=== PATIENT | male | born 1940 | race Caucasian/White ===

== ENCOUNTER 2018-04-25 13:15 | Outpatient (CLI) | payer MEDICARE, OTHER, SELFPAY ==
--- NOTE | 2018-04-25 13:31 | DI.RAD_ITS ---
SYMPTOM/DIAGNOSIS: COUGH,R05 PA AND LATERAL CHEST: Comparison is made with 09/30/09. Heart size and pulmonary vasculature are stable and within normal limits. The lungs are clear. No effusions or pneumothoraces are identified. Old healed right rib fractures are noted. There is hyperinflation of the lungs consistent with underlying COPD. Degenerative changes are present. IMPRESSION: No acute pulmonary process.
== END 2018-04-25 13:35 ==
PROVIDERS: PCP Internal Medicine; Visit Provider Internal Medicine
DX: R05 Cough (principal); J44.9 Chronic obstructive pulmonary disease, unspecified
CPT/HCPCS: 71046

== ENCOUNTER 2018-05-15 14:16 | Outpatient (REF) | payer MEDICARE, OTHER, SELFPAY ==
[2018-05-15 20:58] LABS: HCT 38.2 % (40.0-50.0); Mean Corpuscular Hemoglobin 30.6 pg (27.0-33.0); Mean Corpuscular Volume 89.9 fL (80-95); Mean Platelet Volume 9.6 fL (8.0-11.0); Platelet Count 256 x1000/uL (130-400); RBC 4.25 m/cumm (4.50-6.00); RBC Distribution Width 14.9 % (11.8-14.1); White Blood Cell Count 6.91 k/cumm (4.4-10.8)
[2018-05-15 21:31] LABS: Iron 72 ug/dL (50-175); Total Iron Binding Capacity 279 ug/dL (250-450); Transferrin Sat 26 % (20-55)
[2018-05-15 21:53] LABS: Anion Gap 8.5 mmol/L (3-11); BUN 15 mg/dL (7-18); CO2 30.5 mmol/L (21.0-32.0); CREATININE 1.26 mg/dL (0.70-1.30); Calcium 8.7 mg/dL (8.5-10.1); Chloride 100 mmol/L (98-107); Cholesterol 176 mg/dL (50-200); Estimated GFR 55.49 (mL/min/1.73m2); Glucose 99 mg/dL (70-100); HDL Cholesterol 43 mg/dL (40-60); LDL CHOLESTEROL 113 mg/dL (<100); Potassium 3.7 mmol/L (3.5-5.1); Sodium 139 mmol/L (136-145); Triglyceride 148 mg/dL (30-150); Vitamin B12 220 pg/mL (193-986)
== END 2018-05-15 14:36 ==
LOC: NCHCN 14:16
PROVIDERS: PCP Internal Medicine; Visit Provider Internal Medicine
DX: E53.8 Deficiency of other specified B group vitamins (principal); I10 Essential (primary) hypertension; N18.2 Chronic kidney disease, stage 2 (mild); F10.10 Alcohol abuse, uncomplicated; D50.9 Iron deficiency anemia, unspecified
CPT/HCPCS: 80048; 80061; 83721; 85027; 82607; 83540; 83550

== ENCOUNTER 2018-06-16 16:25 | Outpatient (CLI) | payer MEDICARE, OTHER, SELFPAY ==
--- NOTE | 2018-06-16 12:01 | DI.RAD_ITS ---
SYMPTOMS/DIAGNOSIS: COUGH, R05, SINCE MARCH WITH WHEEZING AND RASPY SOUNDS, INHALER NOT HELPING PA AND LATERAL CHEST: Comparison is made with April,. The heart size is within normal limits. The aorta is again noted to be quite tortuous. There are old right upper rib fractures. There are stable mid thoracic compression fractures and degenerative disc changes. The lungs appear clear. IMPRESSION: No acute abnormality.
== END 2018-06-16 16:45 ==
PROVIDERS: PCP Internal Medicine; Visit Provider Internal Medicine
DX: R06.2 Wheezing (principal); R05 Cough
CPT/HCPCS: 71046

== ENCOUNTER 2018-06-19 02:48 | Outpatient (CLI) | payer MEDICARE, OTHER, SELFPAY ==
--- NOTE | 2018-06-19 | PFT_ITS ---
PULMONARY FUNCTION TEST REPORT DATE OF DICTATION June 23, 2018 Patient identification - Som Price DATE OF - 42 DATE OF SERVICE - June 19, 2018 REQUESTING PROVIDER - Jose Malik M.D. INTERPRETATION OF STUDY Spirometry shows mild obstructive airways disease with significant bronchodilator response. LUNG VOLUMES - Lung volumes show mild restriction. DIFFUSION CAPACITY- Normal. AIRWAY RESISTANCE - Elevated. IMPRESSION Combination of mild obstructive airways disease with significant bronchodilator response and mild restrictive lung disease, therefore clinical correlation is recommended. Nayana Cavanaugh M.D. SILVESTRE/harini T - 06/23/2018
[2018-06-19] MEDS: Albuterol HFA 18 GM 200 PUFF INH IH (15:40)
[2018-06-19] MEDS: Inhaler, Assist Device 1 EACH MC (15:40)
== END 2018-06-19 03:08 ==
PROVIDERS: PCP Internal Medicine; Visit Provider Internal Medicine
DX: R05 Cough (principal)
CPT/HCPCS: 94060; 94150; 94726; 94729

== ENCOUNTER 2018-08-15 15:31 | Outpatient (REF) | payer MEDICARE, OTHER, SELFPAY ==
[2018-08-15 20:41] LABS: Anion Gap 6.9 mmol/L (3-11); BUN 22 mg/dL (7-18); CO2 27.1 mmol/L (21.0-32.0); Calcium 8.8 mg/dL (8.5-10.1); Chloride 105 mmol/L (98-107); Estimated GFR 53.53 (mL/min/1.73m2); Glucose 113 mg/dL (70-100); Potassium 3.9 mmol/L (3.5-5.1); Sodium 139 mmol/L (136-145)
== END 2018-08-15 15:51 ==
LOC: NCHCN 15:31
PROVIDERS: PCP Internal Medicine; Visit Provider Internal Medicine
DX: J44.9 Chronic obstructive pulmonary disease, unspecified (principal); J42 Unspecified chronic bronchitis; I10 Essential (primary) hypertension; M10.9 Gout, unspecified; D50.9 Iron deficiency anemia, unspecified
CPT/HCPCS: 80048

== ENCOUNTER 2019-03-04 14:49 | Outpatient (CLI) | payer MEDICARE, OTHER, SELFPAY ==
--- NOTE | 2019-03-04 14:12 | DI.RAD_ITS ---
EXAM: XR SHOULDER LT COMPLETE 2+V INDICATION: left shoulder pain. COMPARISON: RIGHT SHOULDER COMPLETE from 03/15/2010 TECHNIQUE: 2D digital imaging was performed. FINDINGS: Two views were obtained. There is severe hypertrophic degenerative change of the acromioclavicular a nd glenohumeral joints. There is superior subluxation of the humeral head which abuts the acromion c onsistent with chronic superior rotator cuff tear. IMPRESSION: Severe DJD of the left shoulder.
== END 2019-03-04 15:09 ==
PROVIDERS: PCP Internal Medicine; Visit Provider Physician Assistant
DX: M25.512 Pain in left shoulder (principal); M75.102 Unspecified rotator cuff tear or rupture of left shoulder, not specified as traumatic; M12.812 Other specific arthropathies, not elsewhere classified, left shoulder
CPT/HCPCS: 20610; 99203; 73030; J1030

== ENCOUNTER → 2019-04-22 11:05 | Outpatient (BNVA) | payer MEDICARE, OTHER, SELFPAY | PROVIDERS: PCP Internal Medicine; Referring Provider Internal Medicine; Visit Provider Orthopaedic Surgery | DX: M70.62 Trochanteric bursitis, left hip (principal); M25.552 Pain in left hip | CPT/HCPCS: 20610; 99213; J1040 ==

== ENCOUNTER → 2019-07-01 08:06 | Outpatient (BNVA) | payer MEDICARE, OTHER, SELFPAY | PROVIDERS: PCP Internal Medicine; Referring Provider Internal Medicine; Visit Provider Student in an Organized Health Care Education/Training Program | DX: M12.812 Other specific arthropathies, not elsewhere classified, left shoulder (principal) | CPT/HCPCS: 20610; 99214; J1040 ==

== ENCOUNTER 2019-07-14 00:43 | Outpatient (CLI) | payer MEDICARE, OTHER, SELFPAY ==
--- NOTE | 2019-07-14 15:37 | DI.CT_ITS ---
EXAM: CT UPPER EXTREMITY LT WO CLINICAL HISTORY: REVERSE TOTAL SHOULDER SURGICAL PLANNING, M12.812 ARTHROPATHIES LT SHOULDER TECHNIQUE: Noncontrast COMPARISON: XR SHOULDER LT COMPLETE 2+V from 03/04/2019 FINDINGS: Severe degenerative changes are demonstrated in the left shoulder. The humeral head articulates with the undersurface of the acromion. A large joint effusion is seen. Fluid is seen in the subcoracoid bursa. There is calcification around the joint and small loose bodies within the effusion. IMPRESSION: Severe degenerative changes of the left shoulder.
== END 2019-07-14 01:03 ==
PROVIDERS: PCP Internal Medicine; Visit Provider Student in an Organized Health Care Education/Training Program
DX: M12.812 Other specific arthropathies, not elsewhere classified, left shoulder (principal); M19.012 Primary osteoarthritis, left shoulder; M25.412 Effusion, left shoulder
CPT/HCPCS: 73200

== ENCOUNTER 2019-10-06 10:22 | Outpatient (CLI) | payer MEDICARE, OTHER, SELFPAY ==
--- NOTE | 2019-10-06 09:45 | DI.RAD_ITS ---
EXAM: XR SHOULDER RT COMPLETE 2+V CLINICAL HISTORY: traumatic injury to right shoulder TECHNIQUE: 2D digital imaging was performed. COMPARISON: 15 March 2010 FINDINGS: The humeral head is high riding, articulating with the undersurface of the acromion, consistent with a chronic rotator cuff tear. There is some spurring from the AC joint. Subchondral cysts are seen in the humeral head. There is severe narrowing of the glenohumeral joint and periarticular spurring. IMPRESSION: Severe degenerative changes of the left shoulder and chronic rotator cuff tear.
== END 2019-10-06 10:42 ==
PROVIDERS: PCP Internal Medicine; Referring Provider Internal Medicine; Visit Provider Student in an Organized Health Care Education/Training Program
DX: M25.511 Pain in right shoulder (principal); S46.011D Strain of muscle(s) and tendon(s) of the rotator cuff of right shoulder, subsequent encounter; X58.XXXD Exposure to other specified factors, subsequent encounter; M12.812 Other specific arthropathies, not elsewhere classified, left shoulder; M75.22 Bicipital tendinitis, left shoulder
CPT/HCPCS: 20610; 99214; 73030; J1040

== ENCOUNTER 2019-12-10 12:41 | Outpatient (REF) | payer MEDICARE, SELFPAY ==
[2019-12-10 20:46] LABS: Anion Gap 10.5 mmol/L (3-11); BUN 19 mg/dL (7-18); CO2 23.5 mmol/L (21.0-32.0); CREATININE 1.22 mg/dL (0.70-1.30); Calcium 8.7 mg/dL (8.5-10.1); Chloride 104 mmol/L (98-107); Estimated GFR 57.45 (mL/min/1.73m2); Glucose 91 mg/dL (74-106); Potassium 4.6 mmol/L (3.5-5.1); Sodium 138 mmol/L (136-145)
== END 2019-12-10 13:01 ==
LOC: NCHCN 12:41
PROVIDERS: PCP Internal Medicine; Visit Provider Internal Medicine
DX: I10 Essential (primary) hypertension (principal)
CPT/HCPCS: 80048

== ENCOUNTER 2020-02-09 11:01 | Outpatient (CLI) | payer MEDICARE, SELFPAY ==
--- NOTE | 2020-02-09 10:00 | DI.RAD_ITS ---
EXAM: XR SHOULDER LT COMPLETE 2+V CLINICAL HISTORY: f/u shoulder pain TECHNIQUE: COMPARISON: CR XR SHOULDER RT COMPLETE 2+V from 10/06/2019 FINDINGS: Two views were obtained. There is severe loss of the cartilaginous joint space of the glenohumeral j oint. Humeral head is subluxed superiorly and abuts the inferior acromion. There is marked deformit y of humeral head, glenoid, and inferior surface of acromion marked subchondral sclerosis at each the se sites and very prominent marginal osteophytes seen at these sites. IMPRESSION: End-stage degenerative change glenohumeral joint, presumed chronic severe superior rotator cuff tear. RADIATION DOSE DELIVERED: Total DLP
== END 2020-02-09 11:21 ==
PROVIDERS: PCP Internal Medicine; Referring Provider Internal Medicine; Visit Provider Student in an Organized Health Care Education/Training Program
DX: M19.012 Primary osteoarthritis, left shoulder; M25.712 Osteophyte, left shoulder; S46.011D Strain of muscle(s) and tendon(s) of the rotator cuff of right shoulder, subsequent encounter; X58.XXXD Exposure to other specified factors, subsequent encounter; Z98.890 Other specified postprocedural states
CPT/HCPCS: 99213; 73030

== ENCOUNTER → 2020-03-22 09:12 | Outpatient (BNVA) | payer MEDICARE, SELFPAY | PROVIDERS: PCP Internal Medicine; Referring Provider Internal Medicine; Visit Provider Orthopaedic Surgery | DX: M70.62 Trochanteric bursitis, left hip (principal) | CPT/HCPCS: 20610; 99213; J1040 ==

== ENCOUNTER 2020-04-04 13:59 | Outpatient (REF) | payer MEDICARE, SELFPAY ==
[2020-04-06 23:48] LABS: Patient Race White; SARS-CoV-2 RNA Undetected (Undetected); SARS-CoV-2 Specimen Source Nasal
== END 2020-04-04 14:19 ==
LOC: NCHCN 13:59
PROVIDERS: PCP Internal Medicine; Visit Provider Internal Medicine
DX: Z20.828 Contact with and (suspected) exposure to other viral communicable diseases (principal)
CPT/HCPCS: U0003

== ENCOUNTER 2020-04-23 14:11 | Emergency (ER) | payer MEDICARE, SELFPAY ==
[2020-04-23 14:10] VITALS: BP 182/97; PULSE 85; TEMP 37.3; O2SAT 96
--- NOTE | 2020-04-23 14:19 | W.ED.GENAD ---
Discharge Plan Disposition Patient Disposition: HOME Condition: Good Discharge Details Clinical Impression: Skin tear, Laceration of nose, Contusion of head Primary Care Provider: Jose Malik ED Provider: Marisel Clemons Home Meds and New Rx's Prescriptions: No Action atorvastatin 20 mg tablet 20 mg PO DAILY RF: 0 fluticasone propionate 50 mcg/actuation spray,suspension 1 spray DONY DAILY RF: 0 Anoro Ellipta 62.5-25 mcg/actuation blister with device 1 inh IH DAILY RF: 0 amlodipine 5 mg tablet 5 mg PO DAILY RF: 0 metoprolol succinate 100 mg tablet extended release 24 hr 100 mg PO DAILY RF: 0 multivitamin Tablet 1 tab PO DAILY RF: 0 cyanocobalamin (vitamin B-12) 1,000 mcg tablet 1,000 mcg PO DAILY RF: 0 fexofenadine [Tiffany Allergy] 180 mg tablet 180 mg PO DAILY RF: 0 citalopram 20 mg tablet 20 mg PO DAILY RF: 0 trazodone 50 mg tablet 50 mg PO QHS PRNRF: 0 glucosamine sulfate 500 mg tablet 500 mg PO DAILY RF: 0 melatonin 3 mg Tablet 3 mg PO DAILY RF: 0 aspirin [Aspir-81] 81 mg Tablet,Delayed Release (Dr/Ec) 81 mg PO DAILY RF: 0 Discharge Instructions Instructions: Contusion in Adults (ED), Skin Adhesive Care (ED), Facial Laceration (ED) Additional Instructions: Keep your wounds clean, dry, covered. You may use Tylenol as needed for discomfort. The adhesive of your nose will follow up on its own over the next 1 to 2 weeks. Please do not pick or pull at this. Do not apply any ointment over this as it may cause it to breakdown too early. Please keep the bandages on your arm until evaluated by your primary care this week. Please call your primary care provider on Saturday to schedule follow-up appointment this week for reevaluation. If you develop headache, vomiting, fevers, weakness or other new/worsening symptom please seek care urgently once again. Referrals: Jose Malik MD [Primary Care Provider] - Discharge Data Discharge Date/Time-TO BE ENTERED AT DEPARTURE: 04/23/20 16:25 Medical Decision Making Patient is a very pleasant 80 year old male brought in via EMS with c/c of laceration. Patient states that he was sitting at a table with friends, stood and got tangled up in my feet and fell forward. States that he remembers the fall but does not know if he lost consciousness after he struck his head. [place] like he was dazed initially but this has since subsided. Has laceration to his nose which EMS states has been bleeding briskly. They have been applying pressure and gauze. He was also noted to have skin tears to both arms. Denies other injury at that time. He denies GALLARDO, no visual changes, no weakness, no neck pain, CP or SOB. He is not anticoagulated. He states he was feeling well prior to fall. No CP, palpitation, lightheadedness. On exam, patient has actively bleeding inverted V shaped laceration on the bridge of his nose. Fairly superficial but bleeding briskly. Surgicel applied and direct pressure. Patient bled through this quickly. Gelfoam and pressure applied. This stopped the bleeding. No palpable skull fracture or other cranial injury. No neck pain, midline tenderness, chest pain. Full ROM of back/neck. Lungs are clear. Abdomen benign. Has superifical skin tears to his bilateral arms. Neuro exam intact. Patient very chatty, well oriented, comfortable. Obtained CT to evaluate for intracranial pathology given age, reviewed by radiologist: FINDINGS: Brain: No acute large territorial infarction or intracranial hemorrhage. 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 No mass effect or midline shift. Incidental partially empty sella. Cerebral ventricles: No hydrocephalus. Bones/joints: No displaced calvarial fracture. Paranasal sinuses: Small right maxillary sinus mucous retention cyst. Leftward nasal septal deviation with presence of a nasal spur. Mastoid air cells: Visualized mastoid air cells are well aerated. Orbital cavity: Status post lens replacement. Vasculature: Intracranial atherosclerosis. Soft tissues: Mild mid-frontal scalp hematoma. IMPRESSION: 1. Mild mid-frontal scalp hematoma. Otherwise, no acute intracranial abnormality. 2. Chronic senescent changes. Intracranial atherosclerosis. Mild paranasal sinus disease. Incidental partially empty sella. Discussed findings with the patient. Discussed risks/benefits of adhesive closure of his nose. Bleeding is now under controlled. Skin tears were cleansed and cared for by nursing staff, covered with Mepilex. Please see procedure note. Patient tolerated this well. Wound explored to base in bloodless field. Advised on wound and adhesive care. Advised f/u with PCP this week for reevaluation of his skin tears. He was given return precautions. All of his questions and concerns were addressed, he isin agreement with this plan. Patient ambulated out of the department unassisted. HPI General Mode of arrival: EMS. Date/Time Provider Initiated Documentation: 04/23/20 14:19. Limitations to Documentation: no limitations. Information obtained by: patient, EMS and RN notes reviewed. History of Present Illness 80 year old M presents to the emergency department with the chief complaint of fall, laceration to nose and bilateral forearms, described as mild (patient denies pain currently), Quality is described as aching, and is localized to the face, left, right and upper extremity. Patient reports no radiation. Patient started experiencing this minute(s) and it has been constant. No relieving factors improve symptom(s), No exacerbating factors reported . Patient notes no other symptoms.. Patient did receive the following treatments prior to arrival, none Related Data Home Medications Medication Instructions Recorded Confirmed amlodipine 5 mg tablet 5 mg PO DAILY 03/04/19 04/23/20 atorvastatin 20 mg tablet 20 mg PO DAILY 03/04/19 04/23/20 citalopram 20 mg tablet 20 mg PO DAILY 03/04/19 04/23/20 cyanocobalamin (vitamin B-12) 1,000 mcg PO DAILY 03/04/19 04/23/20 1,000 mcg tablet fexofenadine 180 mg tablet 180 mg PO DAILY 03/04/19 04/23/20 fluticasone propionate 50 1 spray DONY DAILY 03/04/19 04/23/20 mcg/actuation nasal spray,suspension glucosamine sulfate 500 mg tablet 500 mg PO DAILY tab 03/04/19 04/23/20 metoprolol succinate 100 mg 100 mg PO DAILY 03/04/19 04/23/20 tablet,extended release 24 hr multivitamin 1 tab PO DAILY 03/04/19 04/23/20 trazodone 50 mg tablet 50 mg PO QHS PRN 03/04/19 04/23/20 umeclidinium 62.5 mcg-vilanterol 1 inh IH DAILY 03/04/19 04/23/20 25 mcg/actuation powdr for inhalation aspirin [Aspir-81] 81 mg PO DAILY 04/23/20 04/23/20 melatonin 3 mg PO DAILY 04/23/20 04/23/20 Allergies Allergy/AdvReac Type Severity Reaction Status Date / Time Penicillins AdvReac Verified 03/22/20 09:18 General Stated Complaint: Trauma LIZABETH: 2 Review of Systems Constitutional Constitutional: Reports as per HPI, Denies chills, Denies fatigue, Denies fever(s), Denies headache(s) and Denies weakness Eyes Eyes: Reports as per HPI, Denies blurry vision, Denies change in vision and Denies loss of vision ENT Ears, Nose, Mouth, and Throat: Denies abnormal hearing and Denies headache(s) Cardiovascular Cardiovascular: Reports as per HPI, Denies chest pain and Denies dyspnea Respiratory Respiratory: Reports as per HPI, Denies cough, Denies pain on inspiration, Denies pain with cough and Denies dyspnea Gastrointestinal Gastrointestinal: Reports as per HPI, Denies abdominal pain, Denies nausea and Denies vomiting Genitourinary Genitourinary: Reports as per HPI and Denies urinary incontinence Musculoskeletal Musculoskeletal: Reports as per HPI Integumentary/Breasts Skin/Breast: Reports as per HPI and Reports wounds Neurologic Neurologic: Reports as per HPI, Denies abnormal hearing, Denies abnormal movements, Denies abnormal speech, Denies headache(s), Denies lack of coordination, Denies localized weakness, Denies loss of vision, Denies seizure-like activity, Denies paresthesias and Denies weakness Endocrine Endocrine: Denies fatigue [facility] Medical History (Updated 04/23/20 @ 15:54 by RAJ Elaine) Alcohol abuse in remission Rotator cuff tear, right Trochanteric bursitis, left hip Most recent injection: 03/22/2020; 04/22/2019 Social History Smoking/Tobacco Use Status: Former Tobacco Use Smoking risk assessment performed?: Yes Alcohol Intake: former Substance use type: does not use Current gender identity: male Do you feel safe at home: Yes Do you feel safe in your relationship?: Yes Exam Const General: cooperative (very chatty), healthy appearing, comfortable, no acute distress, well developed and well groomed Nutritional Appearance: average body habitus and well nourished Orientation: alert, awake and oriented x3 HENMT Head: no palpable skull fracture, normocephalic, no Lechuga's sign, no lacerations, no palpable skull fracture and no scalp tenderness Head images: 1. area of swelling, no laceration over this Ears: hearing grossly normal bilaterally, external ears normal and TM's normal bilaterally General nose exam: septum normal, no nasal discharge, no epistaxis and other (laceration as drawn below) Face and sinus: normal facial exam, sinuses tender, face symmetric, no crepitus, no ecchymosis, no erythema, no fluctuance, laceration, no maxillary instability and no tenderness Face images: 1. laceration, brisk bleeding at this time. No swelling, no palpable deformity Mouth: oral mucosae normal, lip normal (has dried blood around mouth, appears to be from lac, no intraoral bleeding), tongue normal, no trismus and No restricted motion Teeth and gingiva: dentition normal (dentures in place) Throat: posterior oropharynx normal (no blood in posterior oropharnyx) Eyes General: appearance normal, both eyes and all related structures Visual Teixeira: normal visual teixeira by confrontation Alignment and Position: alignment normal Periorbital: periorbital findings normal Eyelids: eyelids normal Conjunctivae: conjunctival abnormality left (no pain, visual changes, discharge, evidence of trauma around danielle eye or lid) subconjunctival hemorrhage Pupils: PERRL EOM: EOM intact bilaterally Neck Neck: normal visual inspection, full ROM, no lymphadenopathy, no meningeal signs, trachea midline and supple Chest Chest: normal inspection of the chest, normal palpation of entire chest wall, no crepitus and no localized rib tenderness Resp Effort & Inspection: normal respiratory effort, able to speak in complete sentences and no respiratory distress Auscultation: clear to auscultation bilaterally, no rales, no rhonchi and no wheezes Cardio Rate: regular rate Rhythm: regular rhythm Heart Sounds: S1 normal and S2 normal GI Inspection: normal to inspection, no abdominal wall ecchymosis, no edema and non-distended Palpation: soft, no hepatosplenomegaly, not firm, no guarding, no pulsatile masses, not rigid and nontender Auscultation: normal bowel sounds Back/Spine/Pelvis Back: no CVA tenderness Cervical Spine: normal cervical lordosis and cervical ROM normal Thoracic/Lumbar Spine: thoracic and lumbar spine normal to inspection, thoraco-lumbar ROM normal, No thoraco-lumbar ROM limited, No thoraco-lumbar spasm and No thoracic spinal tenderness Pelvis: no pain with anterior-posterior compression and no pain with lateral compression Skin Trauma: laceration (as above) Neuro General: patient alert, patient awake, patient oriented x3, gait normal, tone normal and moves all extremities Cranial Nerves: CN's II-XI intact bilaterally Cognition: normal cognition Speech: speech normal Gait: normal gait Motor: muscle tone normal throughout, strength 5/5 throughout, no pronator drift, no movement abnormalities noted and no fasciculations Sensory Exam: no sensory deficits noted (no saddle paresthesias) Extrem General: full ROM, capillary refill normal, no pedal edema and no calf tenderness Right upper extremity: full ROM, normal capillary refill and no joint enlargement; abnormal to inspection (laceration with skin avulsion as below) Left upper extremity: abnormal to inspection (skin flap as below) Elbow/forearm/wrist images: 1. superficial avulsion of skin consistent with skin tear. No deep wound. Full ROM. No swelling or surrounding damage. 2. superficial flap laceration without deep wound noted. Able to be reaproximated well. No active bleeding. Psych Appearance: grossly normal and well kempt Mental Status: mental status grossly normal Speech and Movement: speech and movement normal Course Vital Signs Vital signs: Vital Signs Temperature 37.3 C 04/23/20 14:10 Pulse 85 04/23/20 14:10 Blood Pressure 182/97 H 04/23/20 14:10 Pulse Oximetry 96 04/23/20 14:10 Temperature 37.3 C 04/23/20 14:10 Temperature Source Temporal Artery Scan 04/23/20 14:10 Pulse 85 04/23/20 14:10 Blood Pressure 182/97 H 04/23/20 14:10 Blood Pressure Position Sitting 04/23/20 14:10 Pulse Oximetry 96 04/23/20 14:10 Oxygen Delivery Method Room Air 04/23/20 14:10 Oxygen Flow Rate 0 04/23/20 14:10 Procedures Laceration Laceration 1: Site: face Size (cm): 2 Description: irregular (inverted V shaped laceration) Depth: simple, single layer Pre-repair: wound explored, irrigated extensively and deep structures intact Skin layer closed with: other (adhesive)
[2020-04-23 14:36] VITALS: BP 164/92
--- NOTE | 2020-04-23 14:45 | DI.CT_ITS ---
EXAM: CT HEAD WO CLINICAL HISTORY: fell, struck head, ?LOC. TECHNIQUE: Imaging Protocol: Axial computed tomography images with coronal and sagittal reformatted images were created and reviewed COMPARISON: No exams were available for comparison FINDINGS: There is an apparent anterior scalp hematoma. There is moderate generalized cerebral atrophy and there are patchy areas of decreased attenuation in periventricular white matter consistent with microvascular ischemic changes. No evidence of acute intracranial hemorrhage, mass effect, or midline shift. The orbital structures are unremarkable. The temporal bone structures appear intact. Calvarium: Normal. Visualized Paranasal sinuses/Mastoids: Clear. IMPRESSION: No evidence of acute intracranial process. RADIATION DOSE DELIVERED: 769.77mGy.cm Total DLP 769.77mGy.cm Total DLP DATA REPOSITORY: All CT scans at this facility are submitted to the National Radiology Data Registry (NRDR) Dose Index Registry (DIR) with the [employer] ([employer]). RADIATION OPTIMIZATION: All CT scans at this facility use at least one of these dose optimization te chniques: automated exposure control; mA and/or kV adjustment per patient size (includes targeted exa ms where dose is matched to clinical indication); or iterative reconstruction.
--- NOTE | 2020-04-23 14:58 | DI.VRAD_ITS ---
PROCEDURE INFORMATION: Exam: CT Head Without Contrast Exam date and time: 04/23/2020 2:41 PM Age: 80 years old Clinical indication: Other: Fell, struck head, ? loc TECHNIQUE: Imaging protocol: Computed tomography of the head without contrast. Radiation optimization: All CT scans at this facility use at least one of these dose optimization techniques: automated exposure control; mA and/or kV adjustment per patient size (includes targeted exams where dose is matched to clinical indication); or iterative reconstruction. COMPARISON: No relevant prior studies available. FINDINGS: Brain: No acute large territorial infarction or intracranial hemorrhage. 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 No mass effect or midline shift. Incidental partially empty sella. Cerebral ventricles: No hydrocephalus. Bones/joints: No displaced calvarial fracture. Paranasal sinuses: Small right maxillary sinus mucous retention cyst. Leftward nasal septal deviation with presence of a nasal spur. Mastoid air cells: Visualized mastoid air cells are well aerated. Orbital cavity: Status post lens replacement. Vasculature: Intracranial atherosclerosis. Soft tissues: Mild mid-frontal scalp hematoma. IMPRESSION: 1. Mild mid-frontal scalp hematoma. Otherwise, no acute intracranial abnormality. 2. Chronic senescent changes. Intracranial atherosclerosis. Mild paranasal sinus disease. Incidental partially empty sella. Dictated and Authenticated by: Yoselin Le MD. Ordering:RATNA Joiner MD
[2020-04-23 16:05] VITALS: BP 165/89; PULSE 83; RESP 18; TEMP 36.9; O2SAT 95
== END 2020-04-23 16:25 | disposition home or self-care (01) ==
PROVIDERS: Emergency Provider Physician Assistant; PCP Internal Medicine
DX: S01.21XA Laceration without foreign body of nose, initial encounter (principal); S00.03XA Contusion of scalp, initial encounter; S51.812A Laceration without foreign body of left forearm, initial encounter; S51.811A Laceration without foreign body of right forearm, initial encounter; W18.09XA Striking against other object with subsequent fall, initial encounter
CPT/HCPCS: 12011; 99283; 70450

== ENCOUNTER → 2020-05-10 11:13 | Outpatient (BNVA) | payer MEDICARE, SELFPAY | PROVIDERS: PCP Internal Medicine; Referring Provider Internal Medicine; Visit Provider Orthopaedic Surgery | DX: M12.812 Other specific arthropathies, not elsewhere classified, left shoulder (principal) | CPT/HCPCS: 20610; 99213; J1040 ==

== ENCOUNTER 2020-12-08 21:59 | Outpatient (REF) | payer MEDICARE, SELFPAY ==
[2020-12-08 21:12] LABS: HGB 10.6 g/dL (13.5-17.5); MCH 27.3 pg (27.0-33.0); MCHC 31.2 % (32.0-36.0); MCV 87.6 fL (80-95); MPV 9.9 fL (8.0-11.0); Platelet Count 272 10^3/uL (130-400); RBC 3.88 10^6/uL (4.36-5.78); RDW 14.4 % (11.8-14.1); RDW-SD 45.9 fL
[2020-12-08 21:30] LABS: Anion Gap 10.4 mmol/L (3-11); BUN 16 mg/dL (7-18); CO2 24.6 mmol/L (21.0-32.0); CREATININE 1.4 mg/dL (0.70-1.30); Calcium 8.5 mg/dL (8.5-10.1); Chloride 108 mmol/L (98-107); Estimated GFR 48.89 (mL/min/1.73m2); Glucose 154 mg/dL (74-106); Potassium 4.1 mmol/L (3.5-5.1); Sodium 143 mmol/L (136-145)
== END 2020-12-08 22:00 | disposition home or self-care (01) ==
LOC: NCHCN 21:59
PROVIDERS: PCP Internal Medicine; Visit Provider Internal Medicine
DX: I10 Essential (primary) hypertension (principal); J44.9 Chronic obstructive pulmonary disease, unspecified; D50.9 Iron deficiency anemia, unspecified; L30.9 Dermatitis, unspecified; F10.11 Alcohol abuse, in remission
CPT/HCPCS: 80048; 85027

== ENCOUNTER 2021-02-17 17:44 | Outpatient (REF) | payer MEDICARE, SELFPAY ==
[2021-02-17 14:46] LABS: HCT 36.1 % (40.0-50.0); MCHC 30.5 % (32.0-36.0); MCV 88.5 fL (80-95); MPV 9.8 fL (8.0-11.0); Platelet Count 280 10^3/uL (130-400); RBC 4.08 10^6/uL (4.36-5.78); RDW 15.4 % (11.8-14.1); RDW-SD 50.4 fL; WBC 5.97 10^3/uL (4.4-10.8)
[2021-02-17 14:55] LABS: Iron 67 ug/dL (65-175); Total Iron Binding Capacity 400 ug/dL (250-450); Transferrin Sat 17 % (20-55)
[2021-02-17 15:22] LABS: Vitamin B12 133 pg/mL (193-986)
== END 2021-02-17 17:45 | disposition home or self-care (01) ==
LOC: NCHCN 17:44
PROVIDERS: PCP Internal Medicine; Visit Provider Family Medicine
DX: D64.9 Anemia, unspecified (principal); I10 Essential (primary) hypertension; E53.8 Deficiency of other specified B group vitamins; E78.5 Hyperlipidemia, unspecified
CPT/HCPCS: 85027; 82607; 83540; 83550

== ENCOUNTER 2021-06-29 18:29 | Outpatient (REF) | payer MEDICARE, SELFPAY ==
[2021-06-29 14:35] LABS: Abs Immature Grans 0.02 10^3/uL (0.0-0.06); Absolute Basophil Count 0.08 10^3/uL (0.0-0.2); Absolute Eosinophil Count 0.35 10^3/uL (0.0-0.7); Absolute Lymphocyte Count 1.47 10^3/uL (1.2-3.4); Absolute Monocyte Count 0.57 10^3/uL (0.1-0.8); Absolute Neutrophil Count 3.24 10^3/uL (1.2-6.7); Basophils % 1.4; Eosinophils % 6.1; HCT 35.5 % (40.0-50.0); Immature Grans % 0.3; Lymphocytes % 25.7; MCH 28.1 pg (27.0-33.0); MCV 90.6 fL (80-95); MPV 9.8 fL (8.0-11.0); Monocytes % 9.9; Neutrophils % 56.6; Nucleated RBC 0 %; Platelet Count 235 10^3/uL (130-400); RBC 3.92 10^6/uL (4.36-5.78); RDW 15.3 % (11.8-14.1); RDW-SD 51.1 fL; WBC 5.73 10^3/uL (4.4-10.8)
[2021-06-29 14:52] LABS: ALT 30 U/L (16-63); AST 24 U/L (15-37); Albumin 3.6 g/dL (3.4-5.0); Alkaline Phosphatase 104 U/L (46-116); Bilirubin, Direct 0.1 mg/dL (0.0-0.2); Bilirubin, Total 0.4 mg/dL (0.2-1.0); Total Protein 6.6 g/dL (6.4-8.2)
[2021-06-29 15:34] LABS: Vitamin B12 274 pg/mL (193-986)
[2021-06-30 10:38] LABS: Hepatitis C Ab w Rflx HCV PCR Negative (Negative)
== END 2021-06-29 18:30 | disposition home or self-care (01) ==
LOC: NCHCN 18:29
PROVIDERS: PCP Internal Medicine; Visit Provider Internal Medicine
DX: E53.8 Deficiency of other specified B group vitamins; Z11.59 Encounter for screening for other viral diseases; I10 Essential (primary) hypertension
CPT/HCPCS: 80076; 86803; 82607; 85025

== ENCOUNTER → 2021-08-08 09:52 | Outpatient (BNVA) | payer MEDICARE, SELFPAY | PROVIDERS: PCP Internal Medicine; Referring Provider Internal Medicine; Visit Provider Student in an Organized Health Care Education/Training Program | DX: M75.101 Unspecified rotator cuff tear or rupture of right shoulder, not specified as traumatic (principal); M12.811 Other specific arthropathies, not elsewhere classified, right shoulder | CPT/HCPCS: 20610; 99214; J1040 ==

== ENCOUNTER → 2021-09-12 11:30 | Outpatient (BNVA) | payer MEDICARE, SELFPAY | PROVIDERS: PCP Internal Medicine; Referring Provider Internal Medicine; Visit Provider Student in an Organized Health Care Education/Training Program | DX: R69 Illness, unspecified (principal) ==

== ENCOUNTER → 2021-10-18 13:26 | Outpatient (BNVA) | payer MEDICARE, SELFPAY | PROVIDERS: PCP Internal Medicine; Referring Provider Internal Medicine; Visit Provider Student in an Organized Health Care Education/Training Program | DX: M12.812 Other specific arthropathies, not elsewhere classified, left shoulder (principal) | CPT/HCPCS: 20610; 99213; J1040 ==

== ENCOUNTER → 2021-10-31 09:44 | Outpatient (BNVA) | payer MEDICARE, SELFPAY | PROVIDERS: PCP Internal Medicine; Referring Provider Internal Medicine; Visit Provider Physician Assistant | DX: M75.101 Unspecified rotator cuff tear or rupture of right shoulder, not specified as traumatic (principal); M12.811 Other specific arthropathies, not elsewhere classified, right shoulder | CPT/HCPCS: 20610; J1040 ==

== ENCOUNTER 2021-12-27 16:12 | Outpatient (REF) | payer MEDICARE, SELFPAY ==
[2021-12-27 15:15] LABS: HGB 11.6 g/dL (13.5-17.5); MCH 29.7 pg (27.0-33.0); MCHC 32.2 % (32.0-36.0); MCV 92 fL (80-95); MPV 9.7 fL (8.0-11.0); Platelet Count 242 10^3/uL (130-400); RBC 3.91 10^6/uL (4.36-5.78); RDW 15.2 % (11.8-14.1); RDW-SD 51.3 fL; WBC 5.94 10^3/uL (4.4-10.8)
[2021-12-27 16:03] LABS: Anion Gap 8.6 mmol/L (3-11); BUN 22 mg/dL (7-18); CO2 29.4 mmol/L (21.0-32.0); CREATININE 1.1 mg/dL (0.70-1.30); Calcium 8.6 mg/dL (8.5-10.1); Chloride 103 mmol/L (98-107); Ferritin 37 ng/mL (26-388); Glucose 106 mg/dL (74-106); Potassium 4.8 mmol/L (3.5-5.1); Sodium 141 mmol/L (136-145)
== END 2021-12-27 16:13 | disposition home or self-care (01) ==
LOC: NCHCN 16:12
PROVIDERS: PCP Internal Medicine; Visit Provider Family Medicine
DX: I10 Essential (primary) hypertension (principal); D64.9 Anemia, unspecified; F32.9 Major depressive disorder, single episode, unspecified; J44.9 Chronic obstructive pulmonary disease, unspecified
CPT/HCPCS: 80048; 85027; 82728

== ENCOUNTER 2023-02-12 19:01 | Emergency (ER) | payer MEDICARE, SELFPAY ==
[2023-02-12 19:06] VITALS: BP 99/66; PULSE 78; RESP 20; TEMP 37; O2SAT 99
--- NOTE | 2023-02-12 19:15 | DI.RAD_ITS ---
Exam(s) XR CLAVICLE RT XR SHOULDER RT COMPLETE 2+V EXAM: XR SHOULDER RT COMPLETE 2+V CLINICAL HISTORY: trauma / fall. TECHNIQUE: 2D digital imaging was performed. Five views. COMPARISON: CR XR SHOULDER RT COMPLETE 2+V from 10/06/2019 FINDINGS: BONES: No acute fracture is present. Old right upper rib fractures. No bony destructive lesion is s een. Degenerative cysts in the humeral head. JOINTS: No dislocation present. Severe degenerative changes of the glenohumeral joint. Humeral head is again noted to be superiorly positioned, adjacent to the undersurface of the acromion consistent with chronic rotator cuff tear. Mild spurring at AC joint. SOFT TISSUE: Normal. IMPRESSION: No acute abnormality. DATA REPOSITORY: RADIATION DOSE DELIVERED:
--- NOTE | 2023-02-12 20:38 | DI.VRAD_ITS ---
PROCEDURE INFORMATION: Exam: XR Right Clavicle, Complete Exam date and time: 02/12/2023 7:39 PM Age: 82 years old Clinical indication: Other: Trauma/ fall TECHNIQUE: Imaging protocol: Radiologic exam of the right clavicle. Complete exam. Views: Any number of views. COMPARISON: CR XR SHOULDER RT COMPLETE 2+V 10/06/2019 10:06 AM FINDINGS: Bones/joints: No acute fracture. Normal acromioclavicular alignment. Moderate acromioclavicular narrowing. Severe narrowing noted at the acromial humeral space, similar to previous. Mild glenohumeral subluxation noted. Degenerative changes noted in the spine. Soft tissues: Unremarkable. IMPRESSION: No acute osseous abnormality. Chronic rotator cuff pathology. If symptoms persist, follow-up imaging is advised. Dictated and Authenticated by: Fady Patrick MD. Ordering:HORACIO Harmon MD
--- NOTE | 2023-02-12 20:39 | DI.VRAD_ITS ---
PROCEDURE INFORMATION: Exam: XR Right Shoulder Exam date and time: 02/12/2023 7:44 PM Age: 82 years old Clinical indication: Other: Trauma/ fall TECHNIQUE: Imaging protocol: Radiologic exam of the right shoulder. Views: 2 or more views. COMPARISON: CR XR SHOULDER RT COMPLETE 2+V 10/06/2019 10:06 AM FINDINGS: Bones/joints: No acute fracture. No dislocation. Severe narrowing noted between the acromion and humeral head. Mild glenohumeral subluxation is unchanged. Moderate acromioclavicular and glenohumeral narrowing observed. Soft tissues: Unremarkable. IMPRESSION: 1. No acute fracture. 2. Severe chronic full-thickness rotator cuff tear. Dictated and Authenticated by: Fady Patrick MD. Ordering:HORACIO Harmon MD
--- NOTE | 2023-02-12 20:42 | ED.GENADUL_ITS ---
Discharge Plan Disposition Patient Disposition: Home Condition: Good Discharge Details Clinical Impression: Traumatic hematoma of right shoulder Primary Care Provider: Jose Malik ED Provider: Harvey Davis Home Meds and New Rx's Prescriptions: No Action atorvastatin 20 mg tablet 20 mg PO DAILY fluticasone propionate 50 mcg/actuation spray,suspension 1 spray DONY DAILY Anoro Ellipta 62.5-25 mcg/actuation blister with device 1 inh IH DAILY amlodipine 5 mg tablet 5 mg PO DAILY metoprolol succinate 100 mg tablet extended release 24 hr 100 mg PO DAILY multivitamin Tablet 1 tab PO DAILY cyanocobalamin (vitamin B-12) 1,000 mcg tablet 1,000 mcg PO DAILY fexofenadine [Tiffany Allergy] 180 mg tablet 180 mg PO DAILY citalopram 20 mg tablet 20 mg PO DAILY trazodone 50 mg tablet 50 mg PO QHS PRN glucosamine sulfate 500 mg tablet 500 mg PO DAILY melatonin 3 mg Tablet 3 mg PO DAILY aspirin [Aspir-81] 81 mg Tablet,Delayed Release (Dr/Ec) 81 mg PO DAILY Discharge Instructions Instructions: Contusion in Adults (ED) Additional Instructions: At this time you have a large hematoma in your shoulder. Thankfully there is no evidence of new fracture. You do have chronic rotator cuff injuries which are unchanged though. Please apply ice for the next 24 hours to the large hematoma on your chest. After that please use a heating pad for the next 1 to 2 weeks to help it reabsorb. Please stop taking your aspirin for the next 1 to 2 weeks secondary to the bleeding risk. As we discussed together there is no evidence of infection at this time or other abnormality, however it can develop into an infection or cause a problem once it becomes liquid. After about a week he will notice a change in the symptoms and it will likely become a softer mass. Please monitor closely for any redness, fever, chills or worsening pain. If you notice any worsening of your symptoms, or any new symptoms such as vomiting, diarrhea, fever, chills, shortness of breath, chest pain, numbness, weakness, or fainting , please return immediately to the emergency department for reevaluation. Please follow up with your primary care provider as soon as possible for reassessment and reevaluation. As always, it was a pleasure participating in your medical care today. Referrals: Jose Malik MD [Primary Care Provider] - Medical Decision Making This is a pleasant 82-year-old male with a past medical history of a chronic rotator cuff tear on the right, hypertension, chronic kidney disease, gout, COPD. He presents today for right shoulder pain. He takes a daily aspirin. Patient states that he was working on his tractor, and unfortunately tripped and landed on the metal of the tractor with his right chest. Patient developed mild pain and swelling without happened. He has since come in for evaluation. He denies numbness or tingling. Minimal soreness in the wrist right chest. No significant pain with movement of the right shoulder. No other complaints at this time. No internal chest pain. No shortness of breath. No numbness tingling or weakness otherwise. Exam demonstrates evidence of swelling over the pectoralis major muscle on the right. Muscle strength remains intact. Bedside ultrasound shows evidence of a large hematoma roughly 6 to 7 cm in diameter. No tenderness over the clavicle or shoulder. X-ray of the clavicle and shoulder demonstrate no evidence of [facility] pathology. Chronic rotator cuff injury is there, but otherwise unchanged. Patient actually demonstrates surprisingly good range of motion. Symptoms consistent with notable intramuscular hematoma. Will recommend cessation of aspirin for the next 2 weeks. Discussed risk and benefits of this. Will recommend ice for the next 24 hours then transition to heat to help with reabsorption. I do long discussion with the son at bedside and the patient regarding red flags for which to continue to monitor for, including evidence of potential infection which always does have the potential to develop later on in the disease course. Discussed red flags for which to return. I have extensively reviewed the treatment plan and discharge instructions with the patient. I have addressed all patient concerns at this time. The patient was made aware of what symptoms to monitor for that would warrant a return to the emergency department. Discussed the plan with the patient, they demonstrate verbal understanding and agreement with our assessment and plan at this time. The documentation in this chart was dictated using [employer] dictation software. Please excuse any dictation errors. FINDINGS: Bones/joints: No acute fracture. Normal acromioclavicular alignment. Moderate acromioclavicular narrowing. Severe narrowing noted at the acromial humeral space, similar to previous. Mild glenohumeral subluxation noted. Degenerative changes noted in the spine. Soft tissues: Unremarkable. IMPRESSION: No acute osseous abnormality. Chronic rotator cuff pathology. If symptoms persist, follow-up imaging is advised. Thank you for allowing us to participate in the care of your patient. Dictated and Authenticated by: Fady Patrick MD 02/12/2023 8:38 PM Eastern Time ([place] & [place]) FINDINGS: Bones/joints: No acute fracture. No dislocation. Severe narrowing noted between the acromion and humeral head. Mild glenohumeral subluxation is unchanged. Moderate acromioclavicular and glenohumeral narrowing observed. Soft tissues: Unremarkable. IMPRESSION: 1. No acute fracture. 2. Severe chronic full-thickness rotator cuff tear. Thank you for allowing us to participate in the care of your patient. Dictated and Authenticated by: Fady Patrick MD 02/12/2023 8:39 PM Eastern Time ([place] & [place]) HPI General Date/Time Provider Initiated Documentation: 02/12/23 19:44 . HPI Narrative: This is a pleasant 82-year-old male with a past medical history of a chronic rotator cuff tear on the right, hypertension, chronic kidney disease, gout, COPD. He presents today for right shoulder pain. He takes a daily aspirin. Patient states that he was working on his tractor, and unfortunately tripped and landed on the metal of the tractor with his right chest. Patient developed mild pain and swelling without happened. He has since come in for evaluation. He denies numbness or tingling. Minimal soreness in the wrist right chest. No significant pain with movement of the right shoulder. No other complaints at this time. No internal chest pain. No shortness of breath. No numbness tingling or weakness otherwise. Related Data Home Medications Medication Instructions Recorded Confirmed amlodipine 5 mg tablet 5 mg PO DAILY 03/04/19 10/31/21 atorvastatin 20 mg tablet 20 mg PO DAILY 03/04/19 10/31/21 citalopram 20 mg tablet 20 mg PO DAILY 03/04/19 10/31/21 cyanocobalamin (vitamin B-12) 1,000 mcg PO DAILY 03/04/19 10/31/21 1,000 mcg tablet fexofenadine 180 mg tablet 180 mg PO DAILY 03/04/19 10/31/21 (Tiffany Allergy) fluticasone propionate 50 1 spray intranasal DAILY 03/04/19 10/31/21 mcg/actuation nasal spray,suspension glucosamine sulfate 500 mg tablet 500 mg PO DAILY 03/04/19 10/31/21 metoprolol succinate 100 mg 100 mg PO DAILY 03/04/19 10/31/21 tablet,extended release 24 hr multivitamin 1 tab PO DAILY 03/04/19 10/31/21 trazodone 50 mg tablet 50 mg PO QHS PRN 03/04/19 10/31/21 umeclidinium 62.5 mcg-vilanterol 1 inh inhalation DAILY 03/04/19 10/31/21 25 mcg/actuation powdr for inhalation (Anoro Ellipta) aspirin 81 mg tablet,delayed 81 mg PO DAILY 04/23/20 10/31/21 release melatonin 3 mg tablet 3 mg PO DAILY 04/23/20 10/31/21 Allergies Allergy/AdvReac Type Severity Reaction Status Date / Time Penicillins AdvReac Verified 02/12/23 19:13 General Stated Complaint: Orthopedic LIZABETH: 3 Review of Systems All systems reviewed & are unremarkable except as noted in HPI and below PFSH All Active Problems Traumatic hematoma of right shoulder (Acute) No-show for appointment (Acute) Rotator cuff tear arthropathy of right shoulder (Acute) Injection 05/10/2020, 08/08/2021; 10/31/2021 Trochanteric bursitis, left hip (Chronic) Most recent injection: 03/22/2020; 04/22/2019 Hypertension (Chronic ~12/05/01) Depression (Chronic ~04/18/10) Hyperlipidemia (Acute ~12/21/05) Chronic kidney disease (Acute ~12/23/12) STAGE 2 Gout (Chronic ~06/16/18) COPD (chronic obstructive pulmonary disease) (Chronic) MILD Rotator cuff arthropathy of left shoulder (Chronic ~11/05/03) Injection: 03/04/2019, 07/01/2019, 10/06/2019, 05/10/2020, 10/18/2021 Medical History Alcohol abuse in remission Rotator cuff tear, right Traumatic tear of right rotator cuff (~08/2019) Social History (Reviewed 02/12/23 @ 20:48 by CARMEN Rogers Smoking/Tobacco Use Status: Former Tobacco Use Smoking risk assessment performed?: Yes Alcohol Intake: former Substance use type: does not use Current gender identity: male Do you feel safe at home: Yes Do you feel safe in your relationship?: Yes Exam Narrative Exam Narrative: 1.Const: Well-nourished, Well-developed, appearing stated age 2.Eyes: PERRL, no conjunctival injection, and symmetrical lids. 3.ENT: Atraumatic external nose and ears. Moist MM. Neck: Symmetric, trachea midline, No thyromegaly. 4.CVS: +S1/S2, No murmurs or gallops. Peripheral pulses 2+ and equal in all extremities. Brisk capillary refill in all extremities. 5.RESP: Unlabored respiratory effort. Clear to auscultation bilaterally. No wheezes rales or rhonchi 6.GI: Soft, Nontender/Nondistended, No hepatosplenomegaly. No guarding or rebound. 7.MSK: Physical exam demonstrates evidence of a large hematoma in the pectoralis major muscle on the right. No actual chest wall tenderness over the ribs. No clavicular or shoulder tenderness on palpation. No tenderness in the head neck or upper extremities. Bedside ultrasound shows large hematoma around the right pectoralis major muscle around 6 cm in diameter. 8.Skin: Warm, Dry. No rashes or lesions. Mild bruising over the right chest pectoralis major muscle 9.Neuro: results technician II-XII grossly intact. Sensation grossly intact, no focal neurologic deficits. 10.Psych: (AAO) x3. Appropriate mood and affect Course Vital Signs Vital signs: Vital Signs Temperature 37.0 C 02/12/23 19:06 Pulse 78 02/12/23 19:06 Respiratory Rate 20 02/12/23 19:06 Blood Pressure 99/66 L 02/12/23 19:06 Pulse Oximetry 99 02/12/23 19:06 Temperature 37.0 C 02/12/23 19:06 Temperature Source Oral 02/12/23 19:06 Pulse 78 02/12/23 19:06 Respiratory Rate 20 02/12/23 19:06 Blood Pressure 99/66 L 02/12/23 19:06 Blood Pressure Position Sitting 02/12/23 19:06 Pulse Oximetry 99 02/12/23 19:06 Oxygen Delivery Method Room Air 02/12/23 19:06 Oxygen Flow Rate 0 02/12/23 19:06 POCUS Exam (ED) Limited Soft Tissue Exam DATE OF EXAM: 02/12/23 TIME OF EXAM: 20:51 PROVIDER THAT PERFORMED THE STUDY: Harvey Davis IS THIS A REPEAT EXAM DURING THIS ENCOUNTER: No LOCATION OF EXAM: Chest wall/right side REASON FOR EXAM: Swelling VISUALIZED STRUCTURES: Muscle, Skin and Subcutaneous tissue PERTINENT FINDINGS/IMPRESSION: Hematoma right pectoralis major . Exam Complete
== END 2023-02-12 21:06 | disposition home or self-care (01) ==
PROVIDERS: Emergency Provider Student in an Organized Health Care Education/Training Program; PCP Internal Medicine
DX: S40.011A Contusion of right shoulder, initial encounter (principal); W18.09XA Striking against other object with subsequent fall, initial encounter; S46.091S Other injury of muscle(s) and tendon(s) of the rotator cuff of right shoulder, sequela; I12.9 Hypertensive chronic kidney disease with stage 1 through stage 4 chronic kidney disease, or unspecified chronic kidney disease; N18.9 Chronic kidney disease, unspecified; Z87.891 Personal history of nicotine dependence
CPT/HCPCS: 76604; 99284; 73000; 73030; 99283

== ENCOUNTER 2023-02-13 16:36 | Outpatient (REF) | payer MEDICARE, SELFPAY ==
[2023-02-13 20:52] LABS: HCT 28.7 % (40.0-50.0); HGB 9.4 g/dL (13.5-17.5); MCH 29.3 pg (27.0-33.0); MCHC 32.8 % (32.0-36.0); MCV 89 fL (80-95); MPV 9.9 fL (8.0-11.0); Platelet Count 303 10^3/uL (130-400); RBC 3.21 10^6/uL (4.36-5.78); RDW 15.3 % (11.8-14.1); RDW-SD 50.4 fL
[2023-02-13 21:08] LABS: ALT 22 U/L (16-63); AST 28 U/L (15-37); Albumin 3.8 g/dL (3.4-5.0); Alkaline Phosphatase 84 U/L (46-116); Anion Gap 10.8 mmol/L (3-11); BUN 23 mg/dL (7-18); Bilirubin, Total 0.4 mg/dL (0.2-1.0); CO2 26.2 mmol/L (21.0-32.0); CREATININE 1.8 mg/dL (0.70-1.30); Calcium 8.6 mg/dL (8.5-10.1); Chloride 100 mmol/L (98-107); Estimated GFR 37.35 (mL/min/1.73m2); Glucose 111 mg/dL (74-106); Potassium 4.4 mmol/L (3.5-5.1); Sodium 137 mmol/L (136-145)
== END 2023-02-13 16:37 | disposition home or self-care (01) ==
LOC: NCHCN 16:36
PROVIDERS: PCP Internal Medicine; Visit Provider Family Medicine
DX: I10 Essential (primary) hypertension (principal); N18.2 Chronic kidney disease, stage 2 (mild); F32.89 Other specified depressive episodes
CPT/HCPCS: 80053; 85027

== ENCOUNTER 2023-02-16 19:41 | Emergency (ER) | payer MEDICARE, SELFPAY ==
[2023-02-16 19:44] VITALS: BP 137/79; PULSE 81; RESP 20
--- NOTE | 2023-02-16 19:45 | RT.EKG_ITS ---
APPROVED REPORT Exam: Resting ECG Reason for Exam: trauma Patient Location: E HR:73 bpm ECG Measurements Heart Rate 73 AXIS TN [id number] P [id number] QRSd 101 QRS 7 QT 399 T 51 QTc 440 Conclusion Pacemaker spikes or artifacts...timing non-diagnostic Atrial fibrillation...V-rate 63- 92, irreg A-activity consider artifactual baseline, regular widecomplex rhythm, non ischemic
--- NOTE | 2023-02-16 20:00 | DI.CT_ITS ---
Exam(s) CT HEAD WO EXAM: CT HEAD WO CLINICAL HISTORY: fall, lateral right brow laceration. TECHNIQUE: Imaging Protocol: Axial computed tomography images with coronal and sagittal reformatted images were created and reviewed COMPARISON: CT CT HEAD WO from 04/23/2020 FINDINGS: Ventricles and Extra axial spaces: Normal in size and morphology for the patient's age. Hemorrhage: None. Cerebral parenchyma: There are areas of decreased attenuation in the white matter consistent with sma ll vessel ischemic disease. No evidence of an acute territorial infarct. Stable benign type basal g angliar calcifications are again seen. Midline shift: None. Brainstem/Cerebellum: Normal. Calvarium: Normal. Visualized Paranasal sinuses/Mastoids: No fluid levels are seen. Soft Tissues: There is a soft tissue laceration on the right forehead. No radiopaque foreign body. IMPRESSION: No acute intracranial process. RADIATION DOSE DELIVERED: 704.19mGy.cm Total DLP DATA REPOSITORY: All CT scans at this facility are submitted to the National Radiology Data Registry (NRDR) Dose Index Registry (DIR) with the [employer] (ACR). RADIATION OPTIMIZATION: All CT scans at this facility use at least one of these dose optimization te chniques: automated exposure control; mA and/or kV adjustment per patient size (includes targeted exa ms where dose is matched to clinical indication); or iterative reconstruction.
--- NOTE | 2023-02-16 20:04 | ED.GENADUL_ITS ---
Discharge Plan Disposition Patient Disposition: Home Condition: Improving Discharge Details Chief Complaint: Trauma Clinical Impression: Laceration of brow without complication Primary Care Provider: Jsoe Malik ED Provider: Contreras Beck Home Meds and New Rx's Prescriptions: No Action atorvastatin 20 mg tablet 20 mg PO DAILY fluticasone propionate 50 mcg/actuation spray,suspension 1 spray DONY DAILY Anoro Ellipta 62.5-25 mcg/actuation blister with device 1 inh IH DAILY amlodipine 5 mg tablet 5 mg PO DAILY metoprolol succinate 100 mg tablet extended release 24 hr 100 mg PO DAILY multivitamin Tablet 1 tab PO DAILY cyanocobalamin (vitamin B-12) 1,000 mcg tablet 1,000 mcg PO DAILY fexofenadine [Tiffany Allergy] 180 mg tablet 180 mg PO DAILY citalopram 20 mg tablet 20 mg PO DAILY trazodone 50 mg tablet 50 mg PO QHS PRN glucosamine sulfate 500 mg tablet 500 mg PO DAILY melatonin 3 mg Tablet 5 mg PO DAILY aspirin [Aspir-81] 81 mg Tablet,Delayed Release (Dr/Ec) 81 mg PO DAILY Discharge Instructions Instructions: Facial Laceration (ED) Additional Instructions: Please keep wound clean and dry. Please return for any worsening symptoms. Medical Decision Making 82-year-old male presents after trip and fall from standing, 4 cm linear laceration to right lateral brow, venous oozing, no foreign body, nongaping, patient is alert and oriented no loss of conscious during injury, patient is on oral aspirin, cranial nerves II through XII intact, 5-5 strength upper and lower extremities, no truncal ataxia, likely simple laceration low suspicion for skull fracture or intracranial hemorrhage however given age and mechanism will obtain CT head. L ET gel is been applied to wound, will irrigate and closed with observable sutures. 21: 30 patient resting comfortably neurologically intact no acute distress. Wound cleaned and sutured, Steri-Strips applied, home care instructions return precautions given. CT head unremarkable. HPI General Date/Time Provider Initiated Documentation: 02/16/23 19:54 . HPI Narrative: 82-year-old male presents after ground-level trip and fall, glasses smashed into right side of face, bleeding laceration noted on arrival. No loss of conscious. No neck pain no chest or abdominal pain. Related Data Home Medications Medication Instructions Recorded Confirmed amlodipine 5 mg tablet 5 mg PO DAILY 03/04/19 02/16/23 atorvastatin 20 mg tablet 20 mg PO DAILY 03/04/19 02/16/23 citalopram 20 mg tablet 20 mg PO DAILY 03/04/19 02/16/23 cyanocobalamin (vitamin B-12) 1,000 mcg PO DAILY 03/04/19 02/16/23 1,000 mcg tablet fexofenadine 180 mg tablet 180 mg PO DAILY 03/04/19 02/16/23 (Tiffany Allergy) fluticasone propionate 50 1 spray intranasal DAILY 03/04/19 02/16/23 mcg/actuation nasal spray,suspension glucosamine sulfate 500 mg tablet 500 mg PO DAILY 03/04/19 02/16/23 metoprolol succinate 100 mg 100 mg PO DAILY 03/04/19 02/16/23 tablet,extended release 24 hr multivitamin 1 tab PO DAILY 03/04/19 02/16/23 trazodone 50 mg tablet 50 mg PO QHS PRN 03/04/19 02/16/23 umeclidinium 62.5 mcg-vilanterol 1 inh inhalation DAILY 03/04/19 02/16/23 25 mcg/actuation powdr for inhalation (Anoro Ellipta) aspirin 81 mg tablet,delayed 81 mg PO DAILY 04/23/20 02/16/23 release melatonin 3 mg tablet 5 mg PO DAILY 04/23/20 02/16/23 Allergies Allergy/AdvReac Type Severity Reaction Status Date / Time Penicillins AdvReac Verified 02/12/23 19:13 General Stated Complaint: Trauma LIZABETH: 3 Review of Systems Narrative: Review of Systems Constitutional: negative Eyes: negative ENT: Facial laceration Cardiovascular: negative Respiratory: negative Gastrointestinal: negative : negative Musculoskeletal: negative Skin: negative Neurologic: negative Psych: negative PFSH All Active Problems (Updated 02/16/23 @ 21:31 by Contreras Beck MD) Traumatic hematoma of right shoulder (Acute) Laceration of brow without complication (Acute) No-show for appointment (Acute) Rotator cuff tear arthropathy of right shoulder (Acute) Injection 05/10/2020, 08/08/2021; 10/31/2021 Trochanteric bursitis, left hip (Chronic) Most recent injection: 03/22/2020; 04/22/2019 Hypertension (Chronic ~12/05/01) Depression (Chronic ~04/18/10) Hyperlipidemia (Acute ~12/21/05) Chronic kidney disease (Acute ~12/23/12) STAGE 2 Gout (Chronic ~06/16/18) COPD (chronic obstructive pulmonary disease) (Chronic) MILD Rotator cuff arthropathy of left shoulder (Chronic ~11/05/03) Injection: 03/04/2019, 07/01/2019, 10/06/2019, 05/10/2020, 10/18/2021 Medical History Alcohol abuse in remission Rotator cuff tear, right Traumatic tear of right rotator cuff (~08/2019) Social History Smoking/Tobacco Use Status: Former Tobacco Use Smoking risk assessment performed?: Yes Alcohol Intake: former Substance use type: does not use Current gender identity: male Do you feel safe at home: Yes Do you feel safe in your relationship?: Yes Exam Narrative Exam Narrative: Physical Examination General: alert, awake, cooperative, resting comfortably, no acute distress HEENT: normocephalic, 4 cm linear superficial laceration with venous oozing right lateral brow no foreign body; PERRL, EOM intact, conjunctiva normal; no nasal discharge; moist mucous membranes, oral and pharyngeal mucosa normal, tolerating secretions Neck: supple, trachea midline; full ROM Chest: normal to inspection Respiratory: normal respiratory effort, speaking in full sentences, clear to auscultation, no wheezing, rales or rhonchi Cardiac: regular rate, regular rhythm, S1S2 intact, no murmurs rubs or gallops GI: abdomen soft, non-tender, non-distended; no palpable mass or hepatospl enomegaly Back: No midline spinal tenderness Skin: Subacute appearing ecchymosis to right chest wall and abdominal wall Neuro: AAOx3, normal speech, moving all extremities; cranial nerves II through XII intact, 5 out of 5 strength upper and lower extremities, no truncal ataxia Extremities: Moving all extremities no signs of trauma Psych: Appropriate mood and affect Course Vital Signs Vital signs: Vital Signs Pulse 81 02/16/23 19:44 Respiratory Rate 20 02/16/23 19:44 Blood Pressure 137/79 02/16/23 19:44 Pulse 81 09/02/23 19:44 Respiratory Rate 20 02/16/23 19:44 Blood Pressure 137/79 02/16/23 19:44 Procedures Laceration Laceration 1: Site: face Side (If applicable): right Size (cm): 4 Description: linear Depth: simple, single layer Local Anesthetic: other anesthetic (LET) Pre-repair: wound explored and irrigated extensively Size (cm): 5-0 Number of sutures: 4
[2023-02-16] MEDS: Lidocaine/Epinephri/Tetracaine Topical Gel 3 ML TP (20:15)
--- NOTE | 2023-02-16 21:11 | DI.VRAD_ITS ---
PROCEDURE INFORMATION: Exam: CT Head Without Contrast Exam date and time: 02/16/2023 8:38 PM Age: 82 years old Clinical indication: Other: Fall, right lateral brow laceration TECHNIQUE: Imaging protocol: Computed tomography of the head without contrast. Radiation optimization: All CT scans at this facility use at least one of these dose optimization techniques: automated exposure control; mA and/or kV adjustment per patient size (includes targeted exams where dose is matched to clinical indication); or iterative reconstruction. COMPARISON: CT HEAD WO 04/23/2020 2:43 PM FINDINGS: Brain: Basal ganglia calcification is present. This may be physiologic. Other considerations are prior infection, thyroid/parathyroid disease or inherited metabolic conditions. There is moderate to severe diffuse heterogeneity of the white matter attenuation, consistent with chronic white matter microangiopathic ischemic changes. There is moderate diffuse cerebral atrophy present. There is no evidence of intracranial hemorrhage. There is no evidence of acute intracranial injury or other pathologic process. There is no evidence of an acute ischemic event. Cerebral ventricles: The ventricular system demonstrates moderate diffuse compensatory enlargement. Paranasal sinuses: Mucoperiosteal thickening consistent with chronic sinusitis. No air-fluid levels to suggest evidence of acute sinusitis. Mastoid air cells: The mastoid aircells are normal. Orbital cavities: The orbits are normal without evidence of fracture. There is no evidence of retro-bulbar hemorrhage. There is no evidence of globe or lens injury. Bones/joints: The bony cranium shows no evidence of injury or other acute pathologic processes. Soft tissues: Soft tissue laceration at the right supraorbital ridge. Vasculature: Vascular calcifications seen consistent with chronic atherosclerotic cerebrovascular disease. IMPRESSION: 1. No evidence of an acute intracranial abnormality. 2. There is moderate atrophy with moderate to severe diffuse heterogeneity of the white matter attenuation, consistent with chronic white matter microangiopathic ischemic changes. There compensatory ventricular enlargement changes. 3. Soft tissue laceration right supraorbital ridge. Dictated and Authenticated by: Jose Cotto MD. Ordering:GONZÁLEZ Chairez MD
[2023-02-16 21:34] VITALS: BP 133/75; PULSE 73; RESP 18; O2SAT 90
== END 2023-02-16 21:48 | disposition home or self-care (01) ==
PROVIDERS: Emergency Provider Emergency Medicine; PCP Internal Medicine
DX: S01.111A Laceration without foreign body of right eyelid and periocular area, initial encounter (principal); I48.91 Unspecified atrial fibrillation; I12.9 Hypertensive chronic kidney disease with stage 1 through stage 4 chronic kidney disease, or unspecified chronic kidney disease; N18.2 Chronic kidney disease, stage 2 (mild); J44.9 Chronic obstructive pulmonary disease, unspecified; E78.5 Hyperlipidemia, unspecified; Z79.82 Long term (current) use of aspirin; Z95.0 Presence of cardiac pacemaker; W01.0XXA Fall on same level from slipping, tripping and stumbling without subsequent striking against object, initial encounter; Y93.01 Activity, walking, marching and hiking; Y92.89 Other specified places as the place of occurrence of the external cause; Y99.9 Unspecified external cause status
CPT/HCPCS: 36415; 93005; 99284; 70450; 93010

== ENCOUNTER → 2023-03-26 10:35 | Outpatient (BNVA) | payer MEDICARE, SELFPAY | PROVIDERS: PCP Internal Medicine; Referring Provider Internal Medicine; Visit Provider Student in an Organized Health Care Education/Training Program | DX: M12.812 Other specific arthropathies, not elsewhere classified, left shoulder (principal) | CPT/HCPCS: 99214 ==

== ENCOUNTER → 2023-03-29 03:04 | Outpatient (CLI) | payer MEDICARE, SELFPAY ==
--- NOTE | 2023-03-29 09:32 | DI.CT_ITS ---
Exam(s) CT UPPER EXTREMITY RT WO EXAM: CT UPPER EXTREMITY RT WO CLINICAL HISTORY: pain,surgical planning,rotator cuff arthropathy,m12.811 TECHNIQUE: Imaging Protocol: Axial computed tomography images with coronal and sagittal reformatted images were created and reviewed. CONTRAST MATERIAL: Noncontrast COMPARISON: CR,XR XR SHOULDER RT COMPLETE 2+V from 02/12/2023 FINDINGS: Bones: There is no evidence of fracture, lytic or blastic lesion.. The humeral head is superiorly positioned, articulating with the undersurface of the acromion. There are degenerative subchondral cysts. Joints: There is severe narrowing of the glenohumeral joint. Soft Tissues: Visualized portion of the right lung are clear. Severe atrophy of the supraspinatus and infraspinatus muscles. IMPRESSION: Severe degenerative changes of the glenohumeral joint. RADIATION DOSE DELIVERED: Total DLP DATA REPOSITORY: All CT scans at this facility are submitted to the National Radiology Data Registry (NRDR) Dose Index Registry (DIR) with the [employer] (ACR). RADIATION OPTIMIZATION: All CT scans at this facility use at least one of these dose optimization te chniques: automated exposure control; mA and/or kV adjustment per patient size (includes targeted exa ms where dose is matched to clinical indication); or iterative reconstruction.
== END ==
PROVIDERS: PCP Internal Medicine; Visit Provider Student in an Organized Health Care Education/Training Program
DX: M12.811 Other specific arthropathies, not elsewhere classified, right shoulder (principal)
CPT/HCPCS: 73200

== ENCOUNTER 2023-04-23 15:31 | Outpatient (REF) | payer MEDICARE, SELFPAY ==
[2023-04-23 20:33] LABS: HCT 29.1 % (40.0-50.0); HGB 9.1 g/dL (13.5-17.5); MCH 28.7 pg (27.0-33.0); MCHC 31.3 % (32.0-36.0); MCV 92 fL (80-95); MPV 8.9 fL (8.0-11.0); Platelet Count 359 10^3/uL (130-400); RBC 3.17 10^6/uL (4.36-5.78); RDW 14.7 % (11.8-14.1); RDW-SD 48.4 fL; WBC 6.37 10^3/uL (4.4-10.8)
[2023-04-23 20:42] LABS: Anion Gap 8.6 mmol/L (3-11); BUN 13 mg/dL (7-18); CO2 26.4 mmol/L (21.0-32.0); CREATININE 1.3 mg/dL (0.70-1.30); Calcium 8.9 mg/dL (8.5-10.1); Chloride 105 mmol/L (98-107); Estimated GFR 54.85 (mL/min/1.73m2); Glucose 124 mg/dL (74-106); Potassium 3.9 mmol/L (3.5-5.1); Sodium 140 mmol/L (136-145)
[2023-04-25 23:15] LABS: Iron 31 ug/dL (65-175); Total Iron Binding Capacity 348 ug/dL (250-450); Transferrin Sat 9 % (20-55)
[2023-04-25 23:42] LABS: Ferritin 70 ng/mL (26-388); Vitamin B12 141 pg/mL (193-986)
== END 2023-04-23 15:32 | disposition home or self-care (01) ==
LOC: NCHCN 15:31
PROVIDERS: PCP Family Medicine; Visit Provider Family Medicine
DX: I10 Essential (primary) hypertension (principal); N18.2 Chronic kidney disease, stage 2 (mild)
CPT/HCPCS: 80048; 85027; 82607; 82728; 83540; 83550

== ENCOUNTER 2023-06-18 15:14 | Outpatient (CLI) | payer MEDICARE, SELFPAY ==
--- NOTE | 2023-06-18 09:00 | DI.RAD_ITS ---
Exam(s) XR HIP LT COMPLETE AP PELVIS EXAM: XR HIP LT COMPLETE AP PELVIS CLINICAL HISTORY: LEFT HIP PAIN. TECHNIQUE: 2D digital imaging was performed of the left hip. Two views were obtained. AP pelvis an d lateral left hip views were obtained. COMPARISON: CR PELVIS AP from 01/07/2009 FINDINGS: BONES: No acute fracture is present. No bony destructive lesion is seen. JOINTS: No dislocation present. There is mild narrowing of the superior joint spaces of the hips, lef t greater than right. There are marked degenerative changes seen in the lower lumbar spine with vacu um discs at L4-5 and L5-S1 noted. SOFT TISSUE: There is extensive atherosclerosis present. IMPRESSION: 1. Mild bilateral joint space narrowing of the hips. 2. Marked degenerative changes seen in the lower lumbar spine. 3. Atherosclerosis. DATA REPOSITORY: RADIATION DOSE DELIVERED:
== END 2023-06-18 15:15 | disposition home or self-care (01) ==
LOC: DIORS 15:15
PROVIDERS: PCP Internal Medicine; Referring Provider Internal Medicine; Visit Provider Student in an Organized Health Care Education/Training Program
DX: S76.302A Unspecified injury of muscle, fascia and tendon of the posterior muscle group at thigh level, left thigh, initial encounter; X58.XXXA Exposure to other specified factors, initial encounter
CPT/HCPCS: 99213; 73502

== ENCOUNTER → 2023-08-28 12:57 | Outpatient (BNVA) | payer MEDICARE, SELFPAY | PROVIDERS: PCP Internal Medicine; Referring Provider Internal Medicine; Visit Provider Student in an Organized Health Care Education/Training Program | DX: M70.72 Other bursitis of hip, left hip (principal) | CPT/HCPCS: 99213 ==

== ENCOUNTER 2023-12-05 11:00 | Emergency (ER) | payer OTHER, MEDICARE, SELFPAY ==
[2023-12-05 10:55] VITALS: BP 140/86; PULSE 82; RESP 20; TEMP 37.9; O2SAT 90
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
[2023-12-05 11:45] VITALS: BP 151/92; PULSE 76; RESP 16; TEMP 36.6; O2SAT 91
== END 2023-12-05 12:46 | disposition home or self-care (01) ==
PROVIDERS: Emergency Provider Emergency Medicine; PCP Family Medicine
DX: S22.31XA Fracture of one rib, right side, initial encounter for closed fracture (principal); J44.9 Chronic obstructive pulmonary disease, unspecified; E78.5 Hyperlipidemia, unspecified; N18.2 Chronic kidney disease, stage 2 (mild); Z99.81 Dependence on supplemental oxygen; Z87.891 Personal history of nicotine dependence
CPT/HCPCS: 99283; 71046; 71100

== ENCOUNTER 2024-01-30 13:51 | Outpatient (REF) | payer MEDICARE, SELFPAY ==
[2024-01-30 14:30] LABS: Abs Immature Grans 0.02 10^3/uL (0.0-0.06); Absolute Eosinophil Count 0.41 10^3/uL (0.0-0.7); Absolute Lymphocyte Count 1.49 10^3/uL (1.2-3.4); Absolute Monocyte Count 0.77 10^3/uL (0.1-0.8); Absolute Neutrophil Count 3.58 10^3/uL (1.2-6.7); Basophils % 1.6 %; Eosinophils % 6.4 %; HCT 34.8 % (40.0-50.0); HGB 11.1 g/dL (13.5-17.5); Immature Grans % 0.3 %; Lymphocytes % 23.4 %; MCH 27.3 pg (27.0-33.0); MCHC 31.9 % (32.0-36.0); MCV 86 fL (80-95); Monocytes % 12.1 %; Neutrophils % 56.2 %; Platelet Count 332 10^3/uL (130-400); RBC 4.07 10^6/uL (4.36-5.78); RDW-SD 47.1 fL; WBC 6.37 10^3/uL (4.4-10.8)
[2024-01-30 15:57] LABS: ALT 29 U/L (16-63); AST 28 U/L (15-37); Albumin 4.1 g/dL (3.4-5.0); Alkaline Phosphatase 150 U/L (46-116); Anion Gap 12.7 mmol/L (3-11); BUN 21 mg/dL (7-18); Bilirubin, Total 0.29 mg/dL (0.2-1.0); CO2 26.3 mmol/L (21.0-32.0); CREATININE 1.4 mg/dL (0.70-1.30); Calcium 9.4 mg/dL (8.5-10.1); Chloride 100 mmol/L (98-107); Estimated GFR 50.18 (mL/min/1.73m2); Glucose 108 mg/dL (74-106); Potassium 4.4 mmol/L (3.5-5.1); Sodium 139 mmol/L (136-145)
[2024-01-31 08:10] LABS: PSA, Screening 14.5 ng/mL (<=6.5)
== END 2024-01-30 13:52 | disposition home or self-care (01) ==
LOC: NCHCN 13:51
PROVIDERS: PCP Family Medicine; Visit Provider Family Medicine
DX: I10 Essential (primary) hypertension (principal); N40.2 Nodular prostate without lower urinary tract symptoms; Z12.5 Encounter for screening for malignant neoplasm of prostate
CPT/HCPCS: 80053; 84153; 85025

== ENCOUNTER → 2024-03-20 08:24 | Outpatient (BNVA) | payer MEDICARE, SELFPAY | PROVIDERS: PCP Family Medicine; Referring Provider Family Medicine; Visit Provider Urology | DX: N40.1 Benign prostatic hyperplasia with lower urinary tract symptoms (principal); N40.2 Nodular prostate without lower urinary tract symptoms; R97.20 Elevated prostate specific antigen [PSA] | CPT/HCPCS: 51798; 81003; 99215 ==

== ENCOUNTER 2024-07-02 01:11 | Outpatient (CLI) | payer MEDICARE, SELFPAY | END 2024-07-02 01:12 | disposition home or self-care (01) | LOC: LBO 01:11 | PROVIDERS: PCP Family Medicine; Visit Provider Urology | DX: R97.20 Elevated prostate specific antigen [PSA] (principal) | CPT/HCPCS: 36415; 84153 ==

== ENCOUNTER 2025-03-24 11:23 | Outpatient (REF) | payer MEDICARE, SELFPAY ==
[2025-03-24 15:11] LABS: Abs Immature Grans 0.03 10^3/uL (0.0-0.06); HCT 28.4 % (40.0-50.0); HGB 8.5 g/dL (13.5-17.5); Immature Grans % 0.6 %; MCH 26.1 pg (27.0-33.0); MCHC 29.9 % (32.0-36.0); MCV 87 fL (80-95); MPV 9.4 fL (8.0-11.0); Platelet Count 354 10^3/uL (130-400); RBC 3.26 10^6/uL (4.36-5.78); RDW 18.8 % (11.8-14.1); RDW-SD 59.7 fL; WBC 5.31 10^3/uL (4.4-10.8)
[2025-03-24 15:36] LABS: Iron 27 ug/dL (65-175); Total Iron Binding Capacity 331 ug/dL (250-450)
[2025-03-24 16:25] LABS: ALT 25 U/L (16-63); AST 24 U/L (15-37); Albumin 3.0 g/dL (3.4-5.0); Alkaline Phosphatase 123 U/L (46-116); Anion Gap 10.1 mmol/L (3-11); BUN 25 mg/dL (7-18); Bilirubin, Total 0.5 mg/dL (0.2-1.0); CO2 26.9 mmol/L (21.0-32.0); Calcium 8.1 mg/dL (8.5-10.1); Chloride 105 mmol/L (98-107); Estimated GFR 66.19 (mL/min/1.73m2); Ferritin 90 ng/mL (26-388); Glucose 158 mg/dL (74-106); Potassium 4.0 mmol/L (3.5-5.1); Sodium 142 mmol/L (136-145); Total Protein 6.2 g/dL (6.4-8.2); Vitamin B12 168 pg/mL (193-986)
[2025-03-24 16:27] LABS: Folate > 20.0 ng/mL (8.6-20.0)
[2025-03-24 16:49] LABS: LDH 316 U/L (85-227)
== END 2025-03-24 11:24 | disposition home or self-care (01) ==
LOC: NCHCN 11:23
PROVIDERS: PCP Family Medicine; Visit Provider Family Medicine
DX: D64.9 Anemia, unspecified (principal)
CPT/HCPCS: 80053; 82607; 82728; 82746; 83010; 83540; 83550; 83615; 85025; 85045

== ENCOUNTER 2025-04-26 14:11 | Outpatient (REF) | payer MEDICARE, SELFPAY ==
[2025-04-26 15:04] LABS: HCT 26.3 % (40.0-50.0); HGB 8.1 g/dL (13.5-17.5); MCH 26.2 pg (27.0-33.0); MCHC 30.8 % (32.0-36.0); MCV 85 fL (80-95); MPV 10.0 fL (8.0-11.0); Platelet Count 258 10^3/uL (130-400); RBC 3.09 10^6/uL (4.36-5.78); RDW 17.5 % (11.8-14.1); RDW-SD 54.9 fL; WBC 5.03 10^3/uL (4.4-10.8)
[2025-04-26 15:29] LABS: Anion Gap 8.9 mmol/L (3-11); BUN 20 mg/dL (7-18); CO2 31.1 mmol/L (21.0-32.0); Calcium 8.4 mg/dL (8.5-10.1); Chloride 104 mmol/L (98-107); Glucose 116 mg/dL (74-106); Sodium 144 mmol/L (136-145)
[2025-04-26 15:34] LABS: Potassium 2.8 mmol/L (3.5-5.1)
[2025-04-27 00:33] LABS: PSA, Diagnostic 11.9 ng/mL (<=6.5)
== END 2025-04-26 14:12 | disposition home or self-care (01) ==
LOC: NCHCN 14:11
PROVIDERS: PCP Family Medicine; Visit Provider Family Medicine
DX: R97.20 Elevated prostate specific antigen [PSA] (principal); D64.9 Anemia, unspecified; N18.2 Chronic kidney disease, stage 2 (mild)
CPT/HCPCS: 80048; 85027; 84153

== ENCOUNTER 2025-05-12 14:29 | Outpatient (REF) | payer MEDICARE, SELFPAY ==
[2025-05-12 18:09] LABS: Anion Gap 7.5 mmol/L (3-11); BUN 23 mg/dL (9-23); CO2 29.5 mmol/L (20.0-31.0); Calcium 9.0 mg/dL (8.3-10.6); Chloride 107 mmol/L (98-107); Glucose 94 mg/dL (74-106); Potassium 3.8 mmol/L (3.5-5.1); Sodium 144 mmol/L (136-145)
== END 2025-05-12 14:30 | disposition home or self-care (01) ==
LOC: NCHCN 14:29
PROVIDERS: PCP Family Medicine; Visit Provider Family Medicine
DX: E87.6 Hypokalemia (principal)
CPT/HCPCS: 80048

== ENCOUNTER → 2025-05-17 03:48 | Outpatient (CLI) | payer MEDICARE, SELFPAY ==
--- NOTE | 2025-05-17 | DI.US_ITS ---
Exam(s) US AAA SCREENING EXAM: US AAA SCREENING CLINICAL HISTORY: SCREENING FOR AAA,FORMER SMOKER, Z87.891 COMPARISON: US POCUS EXAM from 02/12/2023 FINDINGS: No evidence of abdominal aortic aneurysm. Maximum diameter of the abdominal aorta is 2.4 cm, proximally, and the distal abdominal aorta tapers normally. There is mild arteriomegaly of the partially visualized common iliac arteries which exhibit diameters of 1.7-1.8 cm bilaterally. IMPRESSION: No evidence of abdominal aortic aneurysm. Mild enlargement of the diameters of both partially visualized common iliac arteries. DATA REPOSITORY:
== END ==
LOC: DI 03:49
PROVIDERS: PCP Family Medicine; Visit Provider Family Medicine
DX: Z13.6 Encounter for screening for cardiovascular disorders (principal); Z87.891 Personal history of nicotine dependence; I77.89 Other specified disorders of arteries and arterioles
CPT/HCPCS: 76706